=== PATIENT | female | born 2000 | race African-American/Black ===

== ENCOUNTER 2020-01-05 05:11 | Observation (INO) ==
[2020-01-05] MEDS ORDERED: ACETAMINOPHEN 1,000 MG/100 ML VIAL IV STA (05:23)
[2020-01-05] MEDS ORDERED: LORazepam 0.5 MG/1 ML VIAL IV STA (05:24)
[2020-01-05] MEDS ORDERED: SODIUM CHLORIDE 0.9% 1000ML 1,000 ML IV SCH (05:30)
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
[2020-01-05 05:44] LABS: Basophils # (auto) 0.04 K/uL (0-0.2); Basophils % (auto) 0.5 %; Eosinophils # (auto) 0.34 K/uL (0-0.5); Eosinophils % (auto) 4.3 %; Hematocrit (blood only) 37.8 % (37-47); Hemoglobin 13.1 g/dL (12.0-16.0); Immature Granulocytes # (auto) 0.03 K/uL (0.00-0.02); Immature Granulocytes % (auto) 0.4 %; Lymphocytes % (auto) 45.8 %; Mean Corpuscular Hemoglobin 30.5 pg (25-34); Mean Corpuscular Hgb Conc 34.7 g/dL (32-36); Mean Corpuscular Volume 88.1 fL (80-100); Mean Platelet Volume 9.4 fL (7.4-10.4); Monocytes # (auto) 0.52 K/uL (0.11-0.59); Monocytes % (auto) 6.6 %; Neutrophils # (auto) 3.33 K/uL (1.4-6.5); Neutrophils % (auto) 42.4 %; Platelet Count 250 K/uL (130-400); RDW Coefficient of Variation 13.5 % (11.5-14.5); RDW Standard Deviation 43.3 fL (36.4-46.3); Red Blood Count 4.29 M/uL (4.2-5.4); White Blood Count 7.86 K/uL (4.8-10.8)
[2020-01-05 05:59] LABS: Alanine Aminotransferase 21 U/L (12-78); Albumin Level 3.8 gm/dl (3.4-5.0); Aspartate Aminotransferase 17 U/L (15-37); BUN Creatinine Ratio 15.7 (10-20); Blood Urea Nitrogen 13 mg/dl (7-18); Calcium 8.8 mg/dl (8.5-10.1); Carbon Dioxide 24 mmol/L (21-32); Chloride 107 mmol/L (98-107); Creatinine Clr Calc Pharmacy 88.5 ml/min; Est GFR (African American) 120.2; Est GFR (Non-African American) 103.7; Glucose 84 mg/dl (70-99); Potassium 3.5 mmol/L (3.5-5.1); Sodium 137 mmol/L (136-145)
[2020-01-05] MEDS ORDERED: OPTIRAY 320 125ml IV PRN (06:01)
[2020-01-05 06:04] LABS: Alkaline Phosphatase 79 U/L (45-117); Bilirubin,Total 0.3 mg/dl (0.2-1); Total Protein 7.8 gm/dl (6.4-8.2); Troponin I < 0.015 ng/ml (0-0.045)
--- NOTE | 2020-01-05 06:31 | CT Scan Report ---
CT angio chest PE protocol CT DOSE: 250.40 mGy.cm HISTORY: Chest pain. Dyspnea. Chest Pain, eval for PE TECHNIQUE: Multiaxial CT images of the chest were performed following the intravenous administration of contrast to evaluate the pulmonary arteries. Maximal intensity projection images were also obtaine d. A dose lowering technique was utilized adhering to the principles of ALARA. COMPARISON STUDY: None. FINDINGS: The thoracic aorta is normal in course and caliber. There is a moderate amount of residual alignment is considered unremarkable. No significant mediastinal or hilar adenopathy. Filling defect within the right lower lobe pulmonary artery best seen transaxial image 131. No additi onal significant filling defects are appreciated. Lungs are considered clear. IMPRESSION: 1. Study is positive for focal pulmonary embolus involving the proximal aspect of the right lower lob e pulmonary artery. 2. Lungs are considered clear. 3. No additional acute abnormality is appreciated. ACT 112: Negative or not required by law. The above report was generated using voice recognition software. It may contain grammatical, syntax or spelling errors. Electronically signed by: Christ Gill M.D. 01/05/2020 6:30 AM
[2020-01-05] MEDS ORDERED: APIXABAN 5 MG TABLET PO STA (06:52)
[2020-01-05 06:54] LABS: Partial Thromboplastin Time 26.4 Seconds (21.0-31.0); Prothrombin Time 10.3 Seconds (9.0-12.0)
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
[2020-01-05] MEDS ORDERED: ONDANSETRON INJ 2 MG/ML 2 ML VIAL IV PRN (08:48)
[2020-01-05] MEDS: LIDOCAINE 5% 1 PATCH TD SCH (10:00)
[2020-01-05] MEDS: KETOROLAC TROMETHAMINE 15 MG/ML VIAL IV PRN ×2 (13:01→23:07)
[2020-01-05] MEDS: ACETAMINOPHEN 325 MG TAB PO PRN (17:43)
[2020-01-05] MEDS: APIXABAN 5 MG TABLET PO SCH (20:15)
--- NOTE | 2020-01-05 22:49 | Electrocardiogram Report ---
Test Reason : Blood Pressure : / mmHG Vent. Rate : 068 BPM Atrial Rate : 068 BPM P-R Int : 146 ms QRS Dur : 078 ms QT Int : 380 ms P-R-T Axes : 056 067 059 degrees QTc Int : 404 ms Normal sinus rhythm with sinus arrhythmia Normal ECG No previous ECGs available Confirmed by Navi Mariano ([id number]) on 01/05/2020 10:49:56 PM Referred By: REFERRED SELF Confirmed By:Navi Mariano
[2020-01-05] MEDS: DICLOFENAC SOD 1% GEL 100 GM TUBE EXT PRN (23:06)
[2020-01-06] MEDS: DICLOFENAC SOD 1% GEL 100 GM TUBE EXT PRN (07:36)
[2020-01-06] MEDS: ACETAMINOPHEN 325 MG TAB PO PRN (07:40)
[2020-01-06] MEDS: APIXABAN 5 MG TABLET PO SCH (08:38)
[2020-01-06] MEDS: LIDOCAINE 5% 1 PATCH TD SCH (08:39)
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
[2020-01-12 12:50] LABS: Anti Cardiolipin Ab IgG <14 GPL; Anti Cardiolipin Ab IgM <12 MPL; Anti-Cardiolipin Ab IgA <11 APL; Anti-Thrombin III Activity 95 % activity (80-120); B2 Glycoprotein IgA <9 SAU (<=20); B2 Glycoprotein IgG <9 SGU (<=20); B2 Glycoprotein IgM <9 SMU (<=20); PTT LA Screen 35 sec (<=40); Protein S Functional(Activity) 75 % (60-140)
--- NOTE | 2020-02-05 20:32 | Pharmacy Report ---
ED Pharmacist Progress Note - ED Pharmacist Progress Note Date of Service:: February 05, 2020 Notes:: Patient called regarding prescription for eliquis, stating that pharmacy did not have any refills. Patient was discharged on 01/06 and given one month supply. Discussed that typically her f/u provider would prescribe the continuation if to be continued. Patient stated that she was seen at [facility] and by a agricultural extension officer who told her she should continue anticoagulation for several months but no pres cription sent. She thought she had two months sent from us as she was given a copay card but no refill when she was at the pharmacy, she ran out yesterday. Dr. Patterson was her discharging physician, saw that he was on service today, told her I would attempt to contact him but she should try to contact an after hours line for her agricultural extension officer or family doctor. It was after [address] Patterson no longer on service, discussed with resident Dr. Lane. He discussed with attending, Dr. Gonzalez, they will not prescribe minimal supply as neither have recently evaluated/need for continuation. Called patient back and informed her of this. Recommended attempt to contact after hours, call local emergency department or urgent care for rec- would avoid presenting to ED currently if not necessary/could ask pharmacy to do emergency fill? She said she would try these avenues/f/u with doctor in AM if necessary.
== END 2020-01-06 13:09 | disposition home or self-care (01) ==
LOC: ED 05:11 → 3N 05:11